=== PATIENT | female | born 1985 | race Caucasian/White ===

== ENCOUNTER 2018-07-04 14:57 | Emergency (ER) | payer MEDICAID ==
[~2018-07-04] VITALS: Ht 160 cm; Wt 100.0 kg
[~2018-07-04 14:57] MED LIST: PREN-19 PO
[2018-07-04 15:04] VITALS: Ht 160 cm; Wt 100.0 kg
[2018-07-04] MEDS ORDERED: CEPH-443 PO (21:43)
[2018-07-04] MEDS ORDERED: ACET500C5 PO (21:43)
--- NOTE | 2018-07-04 21:49 | ERD ---
ER Documentation Chief Complaint Chief Complaint pt is bib self with c/o right breast pain and headache, 6 months post baby HPI 32-year-old female patient with no significant past medical history presents to the ED complaining of right breast pain that started yesterday. Patient reports that she feels a lump on the right part of her breast above the nipple that is now red. States that she is breast-feeding. Reports that she is also felt some tactile fevers. Denies any nausea, vomiting, abdominal pain, chest pain, shortness of breath. Denies any family history of breast cancer. ROS All systems reviewed and are negative except as per history of present illness. Medications Home Meds Active Scripts Cephalexin* (Keflex*) 500 Mg Capsule, 500 MG PO QID for 7 Days, CAP Prov:ROMEO MELTON PA-C 07/04/18 Acetaminophen* (Tylophen*) 500 Mg Capsule, 1 CAP PO Q6H PRN for PAIN AND OR ELEVATED TEMP, #20 CAP Prov:ROMEO MELTON PA-C 07/04/18 Reported Medications Vit #76/Iron,Carb/FA (Prenatabs Rx Tablet) 1 Each Tablet, 1 EACH PO DAILY, TAB 12/12/17 Allergies Allergies: Coded Allergies: No Known Allergy (Unverified , 12/12/17) PMhx/Soc Medical and Surgical Hx: pt denies Medical Hx, pt denies Surgical Hx History of Surgery: Yes (NOSE) Anesthesia Reaction: No Hx Neurological Disorder: No Hx Respiratory Disorders: No Hx Cardiac Disorders: No Hx Psychiatric Problems: No Hx Miscellaneous Medical Probl: No Hx Alcohol Use: No Hx Substance Use: No Hx Tobacco Use: No Smoking Status: Never smoker FmHx Family History: No diabetes, No coronary disease Physical Exam Vitals Vital Signs Date Temp Pulse Resp B/P (MAP) Pulse Ox O2 O2 Flow FiO2 Time Delivery Rate 07/04/18 98.3 83 18 120/58 99 15:04 (78) Physical Exam Const: Btx-mrj-irndlqles, well-nourished. In no acute distress. Head: Atraumatic, normocephalic Eyes: Normal Conjunctiva without injection. No purulent discharge. PERRL. EOMI ENT: Normal external ear. Ear canal without erythema. Tympanic membrane pearly kessler without effusion or bulging. Nasal canal clear with normal turbinates. Moist oropharynx without tonsillar exudates. Non-erythematous pharynx. Uvula midline. No drooling. No trismus. Neck: Full range of motion. No meningismus. No cervical lymphadenopathy. Resp: Clear to auscultation bilaterally. No wheezing, rhonchi, rales, or crackles. No accessory muscle use. No retractions. Breasts: 1 cm nodule noted superior to patient's right areola with erythema. No warmth to touch. No areolar discharge. No tender to palpation of the left breast. Cardio: Regular rate and rhythm. No murmurs, rubs or gallops. Abd: Soft, non tender, non distended. Normal bowel sounds. No palpable masses. No rebound tenderness. No guarding. Skin: No petechiae or rashes Back: No midline tenderness. No CVA tenderness. Ext: No cyanosis, or edema. Neur: Awake and alert. Psych: Normal Mood and Affect Procedures/MDM 32-year-old female patient with no significant past medical history presents to ED complaining of right breast pain with some redness and reported fever at home. Patient is afebrile and nontoxic-appearing. A breast ultrasound was ordered to further evaluate patient. IMPRESSION: 1. Negative for evidence of an abscess in the right breast. 2. Please note that breast ultrasound does not replace mammography or clinical exam. If there is a palpable breast mass, recommend surgical consultation or further imaging at a dedicated breast imaging center to evaluate the palpable area of concern. BIRADS 0: Assessment incomplete. Exam is limited and performed for evaluation of abscess only. Recommend surgical consultation or further imaging at a dedicated breast imaging center to evaluate the palpable area of concern. Differentials include mastitis however there is no erythema or purulent discharge or crust noted of the bilateral area low therefore patient was strictly instructed to follow-up with her primary care physician for a mammogram if symptoms do not resolve for suspected superficial cellulitis. No abscess noted on breast ultrasound. Differential diagnosis considered include but is not limited to fibroadenoma, cyst, fibrocystic changes, malignancy. Low suspicion for mastitis, deep space infection, sepsis, cellulitis, or other emergent conditions. Diagnosis: Breast pain Discharge medications: Keflex, Tylenol Follow up with primary care physician in 1-2 days. Instructed patient to return to the ED sooner for any worsening symptoms. Patient's questions were answered. Patient is hemodynamically stable. Patient understood and agreed with discharge plan. Patient discharged stable. Disclaimer: Inadvertent spelling and grammatical errors are likely due to EHR/dictation software use and do not reflect on the overall quality of patient care. Also, please note that the electronic time recorded on this note does not necessarily reflect the actual time of the patient encounter. Departure Diagnosis: Primary Impression: Breast pain Condition: Stable Patient Instructions: Mammography, Anatomy of , Common Questions A bout , : Caring for Yourself, Cellulitis, Breast Mass, Uncertain Cause Referrals: [facility] [address] [facility] [address] [place] [address] OFFICE FAX , [facility] [address] [place] [address] [facility] [address] [place] [address] [address] ROE, [facility] [address] [facility], [facility] [address] [address] [address] [facility] [facility] [address] [place] [address] [facility] [address] [place] [address] [phone] [facility] [address] [address] [facility] [address], [facility] [address] [address] RODRIGUEZ, RACHELLE [address] [facility]. [address], [facility] [address] [address] ALBERTO, [facility] [address] [place], [place] [id number] [facility] Hours: 8:00 am - 5:00 pm [facility] ([facility]) Usted se thibodeaux hecho un examen mdico de control que le indica que no est en prakash condicin que requiera tratamiento urgente en el Departamento de Emergencia. Un estudio ms profundo y el tratamiento de manley condicin pueden esperar sin ningn riesgo hasta que usted sea atendida/o en el consultorio de manley mdico o prakash clnica. Es responsabilidad suya arreglar prakash dev para el seguimiento del tena. MANEJO DE CONDICIONES NO URGENTES EN EL FUTURO 1) Si usted tiene un mdico de atencin primaria: Usted debera llamar a manley mdico de atencin primaria antes de venir al departamento de emergencia. Despus de las horas de consultorio, manley doctor o manley asociado/a est disponible por telfono. El mdico o enfermero de josseline en el servicio telefnico puede asesorarle por pam medio para atender el problema, o tena contrario se puede programar prakash dev. 2) Si usted no tiene un mdico de atencin primaria: Llame al mdico o clnica de referencia que aparece abajo rajesh las horas de consultorio para hacer prakash dev para que le vean. CLINICAS: [facility] [phone] [facility] [phone] [facility] [phone] [facility]. [facility] [phone] 7[address] [facility]. [place] [phone] [facility]. [phone] [address] . [facility] () Usted se thibodeaux hecho un examen mdico de control que le indica que no est en prakash condicin que requiera tratamiento urgente en el Departamento de Emergencia. Un estudio ms profundo y el tratamiento de manley condicin pueden esperar sin ningn riesgo hasta que usted sea atendida/o en el consultorio de manley mdico o prakash clnica. Es responsabilidad suya arreglar prakash dev para el seguimiento del tena. MANEJO DE CONDICIONES NO URGENTES EN EL FUTURO 1) Si usted tiene un mdico de atencin primaria: Usted debera llamar a manley mdico de atencin primaria antes de venir al departamento de emergencia. Despus de las horas de consultorio, manley doctor o manley asociado/a est disponible por telfono. El mdico o enfermero de josseline en el servicio telefnico puede asesorarle por pam medio para atender el problema, o tena contrario se puede programar prakash dev. 2) Si usted no tiene un mdico de atencin primaria: Llame al mdico o condado institucions de referencia que aparece abajo rajesh las horas de consultorio para hacer prakash dev para que le vean. SI USTED NO PUEDE PAGAR PARA ROCÍO UN MEDICO puede ir a: [facility] [address] [place] [address] [facility] [address] [place] [address] [facility] [address] [place] [address] [facility] [address] [place] [address] [facility] Additional Instructions: Llame al doctor MAANA y shira prakash DEV PARA DENTRO DE 2-3 YOUNG para obtener prakash mamografa si los sntomas.Dgale a la secretaria que nosotros le instruimos hacer esta dev.Avise o llame si manley condicin se empeora antes de la dev. Regresa aqui si peor o no mejor. WOUND CHECK:CONSULTE A MANLEY MDICO EN 2 ga para rocío MANLEY HERIDA. ROMEO MELTON PA-C Jul 04, 2018 21:49
[2018-07-04 21:59] VITALS: BP 117/57; PULSE 74; RESP 18
== END 2018-07-04 22:00 | disposition home or self-care (01) ==
LOC: FTE 14:57
DX: N64.4 Mastodynia (principal)
CPT/HCPCS: 76642